=== PATIENT | male | born 1975 | race Native Hawaiian/Other Pacific Islander ===

== ENCOUNTER 2023-07-01 17:10 | Emergency (ER) | payer OTHER ==
--- NOTE | 2023-07-01 18:37 | ED Physician Documentation ---
History of Present Illness - Stated complaint Stated Complaint: ABD PX/RASH - Chief complaint Chief Complaint: General - History obtained from History obtained from: Patient - History of Present Illness Pain level max: 8 Pain level now: 8 - Additonal information Additional information: Patient is a 48-year-old male who states that about 5 days ago he noticed a burning to the right side of his abdomen and back. He states today he noticed a rash. It is painful. Tender to the touch. He noticed small vesicles today as well. Has not had shingles before. No fevers. No chills. No cough. No congestion. No nausea or vomiting. No diarrhea. Review of Systems Constitutional: denies: Fever, Chills GI: denies: Vomiting, Diarrhea Musculoskeletal: denies: Neck pain, Back pain PD PAST MEDICAL HISTORY - Past Medical History Past Medical History: Yes Cardiovascular: Hypertension, High cholesterol Respiratory: Asthma, Sleep apnea Neuro: Migraines Endocrine/Autoimmune: Type 2 diabetes GI: GERD : None HEENT: None Psych: Depression, Post traumatic stress disorder Musculoskeletal: Chronic back pain - Past Surgical History Past Surgical History: No - Present Medications Home Medications: Ambulatory Orders Medication Instructions Recorded Confirmed Aspirin EC [Ecotrin] 81 mg PO DAILY 07/01/23 07/01/23 Lisinopril [Zestril] 10 mg PO DAILY 07/01/23 07/01/23 Loratadine [Claritin] 10 mg PO DAILY 07/01/23 07/01/23 Oxycodone HCl/Acetaminophen 1 - 2 each PO Q6H PRN #14 tablet 07/01/23 [Percocet 5-325 mg Tablet] MDD 6 tabs Rosuvastatin Calcium 20 mg PO DAILY 07/01/23 07/01/23 Valacyclovir HCl [Valtrex] 1,000 mg PO TID #21 tablet 07/01/23 metFORMIN [Glucophage] 1,000 mg PO DAILY 07/01/23 07/01/23 predniSONE [Deltasone] 10 mg PO [id number] #42 tab 07/01/23 - Allergies Allergies/Adverse Reactions: Allergies Allergy/AdvReac Type Severity Reaction Status Date / Time No Known Drug Allergies Allergy Verified 07/01/23 17:27 - Social History Does the pt smoke?: No Smoking Status: Never smoker Does the pt drink ETOH?: Yes Does the pt have substance abuse?: Yes Substance Use and Type: Marijuana - Immunizations Immunizations are current?: No Immunizations: Other immun not current - POLST Patient has POLST: No PD ED PE NORMAL - Vitals Vital signs reviewed: Yes - General General: Alert and oriented X 3, No acute distress - HEENT HEENT: Moist mucous membranes - Neck Neck: Supple, no meningeal sign - Cardiac Cardiac: RRR - Respiratory Respiratory: No respiratory distress, Clear bilaterally - Abdomen Abdomen: Soft, Non tender, Non distended - Derm Derm: Warm and dry, Other (Papulovesicular rash that starts on the right lower back and extends over to the abdomen. Does not cross midline.) - Neuro Neuro: Alert and oriented X 3 Results - Vitals Vitals: Vital Signs - 24 hr 07/01/23 07/01/23 17:27 18:54 Temperature 36.2 C L Heart Rate 91 75 Respiratory 16 16 Rate Blood Pressure 167/103 H 155/88 H O2 Saturation 100 98 Oxygen O2 Source Room air PD Medical Decision Making - ED course Complexity details: considered differential, d/w patient ED course: Patient with what appears to be shingles on the right side of the abdomen and flank. We will place on valacyclovir, prednisone and pain medication for home. Rash just started within 48 hours. He did have some pain before the rash. Patient is not immunocompromised. Patient is well-appearing, nontoxic. Afebrile. Patient counseled regarding signs and symptoms for which I believe and urgent re-evaluation would be necessary. Patient with good understanding of and agreement to plan and is comfortable going home at this time This document was made in part using voice recognition software. While efforts are made to proofread this document, sound alike and grammatical errors may occur. Departure - Departure Disposition: 01 Home, Self Care Clinical Impression: Shingles Qualifiers: Herpes zoster complications: without complications Qualified Code(s): B02.9 - Zoster without complications Condition: Good Instructions: ED Shingles Follow-Up: SANTI VIDAL DO [Primary Care Provider] - Prescriptions: predniSONE [Deltasone] 10 mg PO [id number] #42 tab Oxycodone HCl/Acetaminophen [Percocet 5-325 mg Tablet] 1 - 2 each PO Q6H PRN #14 tablet MDD 6 tabs PRN Reason: pain Valacyclovir HCl [Valtrex] 1,000 mg PO TID #21 tablet Comments: You have shingles today. You should keep the rash covered while in the presence of others. Your prescriptions were sent to [facility] in [place]. Use the medications as prescribed. Please follow-up with your doctor for further care. I am prescribing a short course of narcotic pain medication for you. These are p otentially dangerous and addictive medications that should be used carefully. These medications may constipate you. Take an okvz-wxr-hiyexuz stool softener (docusate) twice daily with plenty of water while taking these medications. If you go 24 hours without a bowel movement, take [id number]-romysco miralax, per package instructions. Do not drink or drive while taking these medications. If you received narcotic or sedating medications while in the emergency department, do not drive for 24 hours. Store this medication in a safe, secure place and out of reach of children. It is a violation of federal law to give or sell this medication to another person or to use in a manner other than prescribed. The ED will not refill narcotic prescriptions, including prescriptions lost or stolen. To dispose of unwanted medications: 1. [facility] [address] in [place] has a medication drop box. They accept prescription medications (in pill form) Friday through Friday 9:00 a.m. to 5:00 p.m. 2. [facility] [employer] accepts prescription medications (in pill form only) for disposal year round. Call for more informat ion. 3. Contact the [facility] for the next [facility] sponsored prescription drug collection event. , [phone], or [phone]; Forms: PCP List Discharge Date/Time: 07/01/23 18:55
[2023-07-01 19:02] VITALS: BP 155/88; O2SAT 98
== END 2023-07-01 18:55 | disposition home or self-care (01) ==
LOC: ED 17:10
DX: B02.9 Zoster without complications (principal); I10 Essential (primary) hypertension; E11.9 Type 2 diabetes mellitus without complications; Z79.84 Long term (current) use of oral hypoglycemic drugs
CPT/HCPCS: 99283